=== PATIENT | female | born 1990 | race Two or more races ===

== ENCOUNTER 2018-05-27 22:08 | Outpatient (CLI) | payer MEDICAID ==
[~2018-05-27] VITALS: Ht 157.5 cm; Wt 88.2 kg
[2018-05-27 22:10] VITALS: BP 103/67
[2018-05-27 22:41] LABS: MICROSCOPIC INDICATED
== END 2018-05-27 23:21 | disposition home or self-care (01) ==
LOC: LDOP 22:08
PROVIDERS: ATTEND Student in an Organized Health Care Education/Training Program
DX: O42.912 Preterm premature rupture of membranes, unspecified as to length of time between rupture and onset of labor, second trimester (principal); Z3A.27 27 weeks gestation of pregnancy
CPT/HCPCS: 59025; 81001; 87086; 89060; 99211; G0463; Q0114

== ENCOUNTER 2018-06-23 21:40 | Outpatient (CLI) | payer MEDICAID ==
[~2018-06-23] VITALS: Ht 157.5 cm; Wt 90.9 kg
[2018-06-23 21:30] VITALS: BP 118/58
[2018-06-23 21:53] LABS: MICROSCOPIC NOT IND
== END 2018-06-23 23:40 | disposition home or self-care (01) ==
LOC: LDOP 21:40
PROVIDERS: ATTEND Student in an Organized Health Care Education/Training Program
DX: O26.893 Other specified pregnancy related conditions, third trimester (principal); R10.9 Unspecified abdominal pain; R32 Unspecified urinary incontinence; Z3A.31 31 weeks gestation of pregnancy
CPT/HCPCS: 59025; 81003; 84112; 87086; 99211; G0463

== ENCOUNTER 2018-08-17 03:30 | Inpatient (IN) | payer MEDICAID ==
[~2018-08-17] VITALS: Ht 157.5 cm; Wt 95.0 kg
[2018-08-17] MEDS ORDERED: LACTATED RINGERS 1,000 ML IV SCH ×2 (03:42→04:00)
[2018-08-17] MEDS ORDERED: OXYTOCIN 30U/ 0.9% NaCL 500ML 500 ML IV SCH (03:42)
[2018-08-17 03:48] VITALS: BP 119/72
[2018-08-17] MEDS ORDERED: METOCLOPRAMIDE 5 MG/ML, 2ML ONE (03:52)
[2018-08-17] MEDS ORDERED: NEWBORN KIT ONE (03:52)
[2018-08-17] MEDS ORDERED: SODIUM CITRATE/CITRIC ACID 30 ML UDC ONE (03:52)
[2018-08-17] MEDS ORDERED: LACTATED RINGERS 1,000 ML IVBOLUS ONE (04:00)
[2018-08-17] MEDS ORDERED: SODIUM CITRATE/CITRIC ACID 30 ML UDC PO ONE (04:00)
[2018-08-17] MEDS ORDERED: ONDANSETRON 2MG/ML, 2ML IVPush ONE (04:00)
[2018-08-17] MEDS ORDERED: METOCLOPRAMIDE 5 MG/ML, 2ML IV ONE (04:00)
[2018-08-17 04:05] LABS: BASOPHILS # (AUTO) 0.11 x10^3/uL (0-0.1); BASOPHILS % (AUTO) 1 % (0-1); EOSINOPHILS # (AUTO) 0.08 x10^3/uL (0-0.4); EOSINOPHILS % (AUTO) 1 % (1-7); LYMPHOCYTES # (AUTO) 1.63 x10^3/uL (1-3.4); LYMPHOCYTES % (AUTO) 17 % (22-44); MD NO; MEAN CORPUSCULAR HEMOGLOBIN 30.9 pg (27.0-34.8); MEAN CORPUSCULAR HGB CONC 34.4 g/dL (32.4-35.8); MEAN CORPUSCULAR VOLUME 89.7 fL (80-100); MEAN PLATELET VOLUME 10.2 fL (7.4-10.4); MONOCYTES # (AUTO) 0.75 x10^3/uL (0.2-0.8); MONOCYTES % (AUTO) 8 % (2-9); NEUTROPHILS # (AUTO) 7.15 x10^3/uL (1.8-6.8); NEUTROPHILS % (AUTO) 74 % (42-75); PLATELET COUNT 203 x10^3/uL (130-400); RED BLOOD COUNT 4.65 x10^6/uL (3.82-5.3); RED CELL DISTRIBUTION WIDTH 14.5 % (9.6-15.2)
[2018-08-17] MEDS ORDERED: OXYTOCIN 30U/ 0.9% NaCL 500ML 500 ML ONE (06:38)
[2018-08-17] MEDS ORDERED: EPHEDRINE 50 MG/ML, 1ML IVPush PRN (07:30)
[2018-08-17] MEDS ORDERED: HYDROcodone/APAP 7.5-325MG/15ML UDC PO PRN (07:30)
[2018-08-17] MEDS ORDERED: FENTANYL PF 100 MCG/2ML IV PRN (07:30)
[2018-08-17] MEDS ORDERED: ALBUTEROL SULFATE 2.5 MG/3 ML NPPB PRN (07:30)
[2018-08-17] MEDS ORDERED: OXYcodone 5 MG/5 ML ORAL.SOL UDC PO PRN (07:30)
[2018-08-17] MEDS ORDERED: HYDROmorphone 1 MG/ML, 1ML IV PRN (07:30)
[2018-08-17] MEDS ORDERED: ONDANSETRON 2MG/ML, 2ML IVPush PRN (07:30)
[2018-08-17] MEDS ORDERED: hydrALAzine 20 MG/ML, 1ML IV PRN (07:30)
[2018-08-17] MEDS ORDERED: MEPERIDINE/PF 25MG/0.5ML IVPush PRN (07:30)
[2018-08-17] MEDS ORDERED: LABETALOL 5MG/ML, 20ML IV PRN (07:30)
[2018-08-17] MEDS ORDERED: MIDAZOLAM 1 MG/ML, 2ML IV PRN (07:30)
[2018-08-17] MEDS ORDERED: PROMETHAZINE 25 MG/ML, 1ML IV PRN (07:30)
[2018-08-17] MEDS ORDERED: ONDANSETRON 2MG/ML, 2ML ONE (07:39)
[2018-08-17] MEDS ORDERED: FENTANYL PF 100 MCG/2ML ONE (07:39)
[2018-08-17] MEDS ORDERED: CEFAZOLIN 1,000 MG ONE (07:39)
[2018-08-17] MEDS ORDERED: EPHEDRINE 50 MG/ML, 1ML ONE (07:39)
[2018-08-17] MEDS ORDERED: DEXAMETHASONE 4 MG/ML, 1ML ONE (07:39)
[2018-08-17] MEDS ORDERED: OXYTOCIN 10 UNITS/ML, 1ML ONE (07:39)
[2018-08-17] MEDS ORDERED: PHENYLEPHRINE 10 MG/ML ONE (07:39)
[2018-08-17] MEDS ORDERED: KETOROLAC 30 MG/1 ML ONE (07:39)
[2018-08-17] MEDS: LACTATED RINGERS 1,000 ML IV SCH ×4 (09:06→19:06)
[2018-08-17] MEDS: OXYTOCIN 30U/ 0.9% NaCL 500ML 500 ML IV SCH ×2 (09:06→19:06)
[2018-08-17] MEDS ORDERED: BISACODYL 10 MG SUPP PR PRN (09:30)
[2018-08-17] MEDS ORDERED: morphine SULFATE 10 MG/ML, 1ML IVPush PRN (09:30)
[2018-08-17] MEDS ORDERED: METHYLERGONOVINE 0.2 MG/ML IM PRN (09:30)
[2018-08-17] MEDS ORDERED: OXYcodone/APAP 5/325MG TABLET PO PRN (09:30)
[2018-08-17] MEDS ORDERED: SIMETHICONE 80 MG CHEW TAB PO PRN (09:30)
[2018-08-17] MEDS ORDERED: METOCLOPRAMIDE 5 MG/ML, 2ML IV PRN (09:30)
[2018-08-17] MEDS ORDERED: CARBOPROST TROMETHAMINE 250 MCG/ML, 1ML IM PRN (09:30)
[2018-08-17] MEDS ORDERED: IBUPROFEN 600 MG TABLET PO PRN (09:30)
[2018-08-17] MEDS ORDERED: ACETAMINOPHEN 325 MG TABLET PO PRN (09:30)
[2018-08-17] MEDS ORDERED: MISOPROSTOL 200 MCG TABLET PR PRN (09:30)
[2018-08-17] MEDS ORDERED: ONDANSETRON 2MG/ML, 2ML IV PRN (09:30)
[2018-08-17 10:51] VITALS: BP 112/78
[2018-08-17] MEDS: OXYcodone IR 5MG TABLET PO PRN ×2 (11:49→17:20)
[2018-08-17 15:01] VITALS: BP 110/71
[2018-08-17] MEDS: KETOROLAC 30 MG/1 ML IV SCH ×2 (15:16→21:21)
[2018-08-17 16:18] LABS: MEAN CORPUSCULAR HEMOGLOBIN 30.3 pg (27.0-34.8); MEAN CORPUSCULAR HGB CONC 33.8 g/dL (32.4-35.8); MEAN CORPUSCULAR VOLUME 89.5 fL (80-100); MEAN PLATELET VOLUME 10.3 fL (7.4-10.4); PLATELET COUNT 188 x10^3/uL (130-400); RED BLOOD COUNT 4.24 x10^6/uL (3.82-5.3); RED CELL DISTRIBUTION WIDTH 14.4 % (9.6-15.2)
[2018-08-17 16:46] LABS: BASOPHILS # (AUTO) 0.38 x10^3/uL (0-0.1); BASOPHILS % (AUTO) 3 % (0-1); EOSINOPHILS # (AUTO) 0.05 x10^3/uL (0-0.4); EOSINOPHILS % (AUTO) 0 % (1-7); LYMPHOCYTES # (AUTO) 1.04 x10^3/uL (1-3.4); LYMPHOCYTES % (AUTO) 8 % (22-44); MD SCAN; MONOCYTES # (AUTO) 0.54 x10^3/uL (0.2-0.8); MONOCYTES % (AUTO) 4 % (2-9); NEUTROPHILS # (AUTO) 11.16 x10^3/uL (1.8-6.8); NEUTROPHILS % (AUTO) 85 % (42-75)
[2018-08-17 20:30] VITALS: BP 106/70
[2018-08-17] MEDS: DOCUSATE 100 MG CAPSULE PO PRN (21:21)
[2018-08-18 00:20] VITALS: BP 98/70
[2018-08-18] MEDS: OXYcodone IR 5MG TABLET PO PRN ×4 (00:48→20:51)
[2018-08-18] MEDS: LACTATED RINGERS 1,000 ML IV SCH ×5 (01:06→17:06)
[2018-08-18] MEDS: KETOROLAC 30 MG/1 ML IV SCH ×4 (03:36→20:50)
[2018-08-18 04:40] VITALS: BP 98/64
[2018-08-18] MEDS: OXYTOCIN 30U/ 0.9% NaCL 500ML 500 ML IV SCH ×2 (05:06→15:06)
[2018-08-18 06:55] VITALS: BP 102/62
[2018-08-18] MEDS: PRENATAL VIT/IRON/FA 1 EACH TABLET PO SCH (08:50)
[2018-08-18] MEDS: DOCUSATE 100 MG CAPSULE PO PRN ×2 (08:50→20:51)
[2018-08-18 20:50] VITALS: BP 116/75
[2018-08-19] MEDS: OXYTOCIN 30U/ 0.9% NaCL 500ML 500 ML IV SCH (01:06)
[2018-08-19] MEDS: LACTATED RINGERS 1,000 ML IV SCH ×2 (01:06)
[2018-08-19] MEDS: KETOROLAC 30 MG/1 ML IV SCH ×2 (02:28→08:34)
[2018-08-19] MEDS: OXYcodone IR 5MG TABLET PO PRN ×2 (02:40→08:36)
[2018-08-19] MEDS ORDERED: KETOROLAC 30 MG/1 ML ONE (08:30)
[2018-08-19] MEDS ORDERED: IBUP-1222 PO (08:33)
[2018-08-19] MEDS ORDERED: OXYC-302 PO (08:33)
[2018-08-19] MEDS: PRENATAL VIT/IRON/FA 1 EACH TABLET PO SCH (08:34)
[2018-08-19] MEDS: DOCUSATE 100 MG CAPSULE PO PRN (08:34)
[2018-08-19 09:12] VITALS: BP 117/75
== END 2018-08-19 11:14 | disposition home or self-care (01) | DRG 785 ==
LOC: LDIP 03:30 → 2NW 10:45
PROVIDERS: ADMIT Student in an Organized Health Care Education/Training Program; ATTEND Student in an Organized Health Care Education/Training Program
PROC: 10D00Z1 Extraction of Products of Conception, Low, Open Approach (ICD-10-PCS; principal; 2018-08-17)
PROC: 0UB70ZZ Excision of Bilateral Fallopian Tubes, Open Approach (ICD-10-PCS; 2018-08-17)
DX: O34.211 Maternal care for low transverse scar from previous cesarean delivery (principal); G89.18 Other acute postprocedural pain; Z30.2 Encounter for sterilization; Z37.0 Single live birth; Z3A.39 39 weeks gestation of pregnancy
CPT/HCPCS: 36415; 85025; 86850; 86900; 88302; 90656; G0378; J0690; J1100; J1885; J2405; J3010; J2370; J2590; J2765; J7120

== ENCOUNTER 2019-09-17 23:25 | Emergency (ER) | payer MEDICAID ==
[~2019-09-17] VITALS: Ht 157.5 cm; Wt 81.0 kg
[~2019-09-17 23:25] MED LIST: IBUP-1222 PO; OXYC-302 PO
[2019-09-17 23:36] VITALS: BP 132/78
== END 2019-09-18 00:35 | disposition home or self-care (01) ==
LOC: ED 23:45
DX: J06.9 Acute upper respiratory infection, unspecified (principal); H65.03 Acute serous otitis media, bilateral; H10.33 Unspecified acute conjunctivitis, bilateral
CPT/HCPCS: 99283